=== PATIENT | female | born 2000 | race Caucasian/White ===

== ENCOUNTER → 2022-06-27 07:56 | Outpatient (CLI) | payer OTHER, MEDICAID, SELFPAY ==
--- NOTE | 2022-06-27 07:57 | US_ITS ---
PROCEDURE INFORMATION: Exam: US Right Breast, Complete Exam date and time: 06/27/2022 8:03 AM Age: 22 years old Clinical indication: Mass, lump, or swelling; Right; Additional info: Right breast mass, and right breast pain TECHNIQUE: Imaging protocol: Right breast pain. Patient reports a palpable abnormality in the right 12 o'clock axis COMPARISON: No relevant prior studies available. FINDINGS: Breast: Sonographic images of the right breast including the retroareolar region, all 4 quadrants and the axilla do not demonstrate any solid or cystic masses. This is with particular attention to the 12 o'clock axis where the patient reports a palpable abnormality. 0.6 x 0.4 x 0.2 cm hypoechoic mass in the right 10 o'clock axis 6 cm from the nipple likely reflects benign focal fibrocystic change. No architectural distortion or acoustical shadowing. No skin thickening or axillary adenopathy. IMPRESSION: 1. Palpable abnormality in the right 12 o'clock axis corresponds sonographically to normal fibroglandular structures.Further evaluation of a palpable abnormality should be based on clinical grounds regardless of radiographic findings or lack thereof. 2. Incidental probably benign subcentimeter mass in the right 10 o'clock axis for which a targeted six-month follow-up right breast ultrasound is recommended to ensure stability over time ASSESSMENT: BI-RADS Category 3: Probably benign
== END ==
PROVIDERS: PCP Student in an Organized Health Care Education/Training Program; Visit Provider Obstetrics & Gynecology
DX: N63.10 Unspecified lump in the right breast, unspecified quadrant (principal); N64.4 Mastodynia; Z80.3 Family history of malignant neoplasm of breast
CPT/HCPCS: 76641

== ENCOUNTER → 2023-01-27 14:39 | Outpatient (CLI) | payer OTHER, SELFPAY ==
--- NOTE | 2023-01-27 14:39 | US_ITS ---
PROCEDURE INFORMATION: Exam: US Right Breast, Complete Exam date and time: 01/27/2023 2:54 PM Age: 22 years old Clinical indication: 6 month f/u right breast mass TECHNIQUE: Imaging protocol: Complete ultrasound of all four quadrants of the right breast and the retroareolar regions, including ultrasound of the axilla when performed. COMPARISON: US BREAST RT COMPLETE 06/27/2022 8:03 AM FINDINGS: Breast: Sonographic images of the right breast including the retroareolar region, all 4 quadrants and the axilla do not demonstrate any solid or cystic masses. Other findings: Previously noted right 10 o'clock axis hypoechoic mass is not reproducible on the current examination. Normal fibroglandular structures are noted. No architectural distortion or acoustical shadowing. No skin thickening or axillary adenopathy. IMPRESSION: No sonographic evidence of malignancy. Resolution of a previously noted probable cyst in the right upper outer quadrant ASSESSMENT: BI-RADS Category 1: Negative
== END ==
PROVIDERS: PCP Student in an Organized Health Care Education/Training Program; Visit Provider Obstetrics & Gynecology
DX: N63.10 Unspecified lump in the right breast, unspecified quadrant (principal)
CPT/HCPCS: 76641